=== PATIENT | female | born 1955 | race Hispanic/Latino ===

== ENCOUNTER 2016-11-11 09:54 | Outpatient (CLI) | payer BC ==
--- NOTE | 2016-11-11 14:19 | Mammography Report ---
BILATERAL DIGITAL SCREENING MAMMOGRAM with CAD: 11/11/16 09:54:00 CLINICAL: Routine screening. COMPARISON: 12/04/15 FINDINGS: The breasts are mostly fatty with a few bilateral scattered fibroglandular densities.No mass, architectural distortion or suspicious calcifications. IMPRESSION: No mammographic evidence of malignancy. BI-RADS CATEGORY: 1 -- Negative RECOMMENDATION: Routine mammographic screening in one year. COMMENT: Patient follow-up letters are generated by our [employer] application.
== END 2016-11-11 09:55 | disposition home or self-care (01) ==
LOC: SPVWC 09:54
PROVIDERS: ATTEND Internal Medicine
DX: Z12.31 Encounter for screening mammogram for malignant neoplasm of breast (principal)
CPT/HCPCS: 77067; G0202

== ENCOUNTER 2017-11-15 14:17 | Outpatient (CLI) | payer BC ==
--- NOTE | 2017-11-15 16:01 | Mammography Report ---
BILATERAL DIGITAL SCREENING MAMMOGRAM with CAD: 11/15/17 14:17:00 CLINICAL: Routine screening. COMPARISON:11/11/16 FINDINGS: The breasts are mostly fatty with a few bilateral residual scattered fibroglandular densities. No mass, architectural distortion or suspicious calcifications. IMPRESSION: No mammographic evidence of malignancy. BI-RADS CATEGORY: 1 - - Negative RECOMMENDATION: Routine mammographic screening in one year. COMMENT: Patient follow-up letters are generated by our [employer] application.
== END 2017-11-15 14:18 | disposition home or self-care (01) ==
LOC: SPVWC 14:17
PROVIDERS: ATTEND Internal Medicine
DX: Z12.31 Encounter for screening mammogram for malignant neoplasm of breast (principal)
CPT/HCPCS: 77067

== ENCOUNTER 2018-08-28 14:48 | Outpatient (CLI) | payer MEDICAID ==
--- NOTE | 2018-08-28 15:45 | Ultrasound Report ---
Thyroid ultrasound: Patient is incidentally identified enlarged left thyroid during physical exam. Imaging of the right lobe measures 17 x 19 x 49 mm. The right lobe is heterogeneous but no focal masses and no calcifications. The left lobe measures 24 x 33 x 44 mm and is predominately occupied by a mass measuring 22 x 29 x 34 mm. Small amount of normal thyroid is noted at the superior portion. The mass is heterogeneous with mild internal flow is seen by color imaging. There are no calcifications. The margins of the mass are relatively well circumscribed. The isthmus is 2 mm thick and unremarkable. There are 2 lymph nodes identified in the left cervical region. Both of these appear normal morphologically however the larger of the two has a length of 2.6 cm. Impression: Dominant left lobe mass having ultrasound characteristics most likely representing a goiter. Benign-appearing left cervical lymph nodes. Recommendation: Due to its size I would consider biopsy of the left lobe mass to confirm benignancy. The findings and recommendations have been discussed with the patient.
== END 2018-08-28 14:49 | disposition home or self-care (01) ==
LOC: SPVWC 14:48
PROVIDERS: ATTEND Internal Medicine
DX: J06.9 Acute upper respiratory infection, unspecified (principal)
CPT/HCPCS: 76536

== ENCOUNTER 2018-09-12 08:49 | Day surgery (SDC) | payer MEDICAID ==
--- NOTE | 2018-09-12 12:06 | Short Stay Summary ---
Short Stay Documentation Date of service: 09/12/18 - History Principal diagnosis: left thyroid mass - Allergies and Medications Current Medications: Allergies codeine Adverse Reaction (Unverified 09/12/18 08:50) Shortness of Breath methocarbamol [From Robaxin] Adverse Reaction (Unverified 09/12/18 08:49) Hives Home Medications Medication Instructions Recorded Confirmed Last Taken Type Albuterol Sulfate [Proventil Hfa] 2 puff IH PRN PRN 09/12/18 09/12/18 Unknown History Aspirin [Adult Aspirin] 81 mg PO DAILY 09/12/18 09/12/18 09/09/18 History Calcium Carbonate/Vitamin D3 1 each PO DAILY 09/12/18 09/12/18 09/11/18 History [Calcium 600-Vit D3 800 Tablet] Hydroxychloroquine [Plaquenil] 400 mg PO QDAY 09/12/18 09/12/18 09/11/18 History Loratadine [Claritin] 10 mg PO BID 09/12/18 09/12/18 09/11/18 History Montelukast [Singulair] 10 mg PO DAILY 09/12/18 09/12/18 09/11/18 History Ranitidine HCl [Zantac] 150 mg PO BID 09/12/18 09/12/18 09/11/18 History - Physical exam General appearance: no acute distress HEENT: Other (palpable left thyroid mass) - Brief post op/procedure progress note Date of procedure: 09/12/18 Pre-op diagnosis: left thyroid mass Post-op diagnosis: same Procedure: US guided FNA and Biopsy Anesthesia: local Findings: 3.4cm left thryoid mass Surgeon: MARIZOL MITCHELL Estimated blood loss: none Pathology: list (FNA x 2, rotex biopsy) Condition: stable - Hospital course Hospital course: uneventful - Disposition Condition at discharge: Good Disposition: DC-01 TO HOME OR SELFCARE Short Stay Discharge Plan Follow up with: VANESSA BORGES MD [Primary Care Provider] - 7 Days
--- NOTE | 2018-09-12 12:15 | Ultrasound Report ---
ULTRASOUND THYROID FNA AND BIOPSY HISTORY: Nontoxic goiter, left thyroid lobe mass COMPARISON: Thyroid ultrasound dated 08/28/2018. DESCRIPTION OF PROCEDURE: Informed consent was obtained. Sterile technique was utilized. 1% lidocaine for skin anesthesia. Using ultrasound guidance, 2 fine-needle aspirations and one Rotex biopsy was o btained from a left thyroid mass measuring 3.3 x 2.3 x 2.2 cm. The samples were deemed adequate by e pathologist on site. No complications. IMPRESSION: Successful ultrasound-guided fine-needle aspiration and biopsy of the left thyroid lobe m ass. Signer Name: Yuriy Biswas Jr, MD Signed: 09/12/2018 12:10 PM Workstation Name: [id number]
[2018-09-12 12:39] VITALS: BP 129/76
== END 2018-09-12 12:28 | disposition home or self-care (01) ==
LOC: CATHLABREC 08:49 → EDSTATUS 09:00 → CATHLABREC 12:28
PROVIDERS: ATTEND Internal Medicine
DX: E04.9 Nontoxic goiter, unspecified (principal); J45.909 Unspecified asthma, uncomplicated; K21.9 Gastro-esophageal reflux disease without esophagitis; M06.9 Rheumatoid arthritis, unspecified; Z79.899 Other long term (current) drug therapy; Z88.5 Allergy status to narcotic agent; Z88.8 Allergy status to other drugs, medicaments and biological substances; Z79.82 Long term (current) use of aspirin; Z87.440 Personal history of urinary (tract) infections; Z98.890 Other specified postprocedural states
CPT/HCPCS: 60100; 76942; 88172; 88173; 88305; C1729

== ENCOUNTER 2020-10-12 14:13 | Outpatient (CLI) | payer MEDICARE ==
--- NOTE | 2020-10-12 15:59 | Mammography Report ---
DIGITAL SCREENING MAMMOGRAM WITH CAD, 10/12/2020 CLINICAL INFORMATION / INDICATION: Routine screening mammography. TECHNIQUE: Digital bilateral 2D mammography was obtained in the craniocaudal and mediolateral obliqu e projections. This examination was interpreted with the benefit of Computer-Aided Detection analysis . COMPARISON: 11/15/2017 FINDINGS: Breast Density: There are scattered areas of fibroglandular density. No dominant mass, suspicious calcifications, or architectural distortion in either breast. No interval change. IMPRESSION: No mammographic evidence of malignancy. Follow up recommendation: Routine yearly BI-RADS Category 1: Negative. A "normal" or negative report should not discourage follow up or biopsy of a clinically significant f inding. A written summary of these findings will be mailed to the patient. The patient will be entered into a mammography reporting system which will generate a reminder letter for the patient's next appointmen t at the appropriate interval. The [employer] recommends yearly mammograms starting at age 40 and continuing as l annia as a woman is in good health. Breast MRI is recommended for women with an approximate 20-25% or greater lifetime risk of breast cancer, including women with a strong family history of breast or ova kimberlee cancer or who have been treated for Hodgkin's disease. Signer Name: Darlene Golden MD Signed: 10/12/2020 3:54 PM Workstation Name: [id number]
== END 2020-10-12 14:14 | disposition home or self-care (01) ==
LOC: SPVWC 14:13
PROVIDERS: ATTEND Internal Medicine
DX: Z12.31 Encounter for screening mammogram for malignant neoplasm of breast (principal); N64.89 Other specified disorders of breast
CPT/HCPCS: 77067

== ENCOUNTER 2021-11-17 14:12 | Outpatient (CLI) | payer MEDICARE ==
--- NOTE | 2021-11-17 17:17 | Mammography Report ---
DIGITAL SCREENING MAMMOGRAM WITH CAD, 11/17/2021 CLINICAL INFORMATION / INDICATION: Routine screening mammography. TECHNIQUE: Digital bilateral 2D mammography was obtained in the craniocaudal and mediolateral oblique projections. This examination was interpreted with the benefit of Computer-Aided Detection analysis. COMPARISON: 11/11/2016 through 10/12/2020. FINDINGS: Breast Density: There are scattered areas of fibroglandular density. No dominant mass, suspicious calcifications, or architectural distortion in either breast. IMPRESSION: No mammographic evidence of malignancy. Follow up recommendation: Routine yearly screening mammogram. BI-RADS Category 1: NEGATIVE A "normal" or negative report should not discourage follow up or biopsy of a clinically significant f inding. A written summary of these findings will be mailed to the patient. The patient will be entered into a mammography reporting system which will generate a reminder letter for the patient's next appointmen t at the appropriate interval. The [employer] recommends yearly mammograms starting at age 40 and continuing as l annia as a woman is in good health. Breast MRI is recommended for women with an approximate 20-25% or greater lifetime risk of breast cancer, including women with a strong family history of breast or ova kimberlee cancer or who have been treated for Hodgkin's disease. Signer Name: Gerardo Maldonado MD Signed: 11/17/2021 5:13 PM Workstation Name: [id number]
== END 2021-11-17 14:13 | disposition home or self-care (01) ==
LOC: SPVWC 14:12
PROVIDERS: ATTEND Internal Medicine
DX: Z12.31 Encounter for screening mammogram for malignant neoplasm of breast (principal)
CPT/HCPCS: 77067